=== PATIENT | male | born 1995 | race Caucasian/White ===

== ENCOUNTER 2016-08-15 04:42 | Emergency (ER) | payer OTHER ==
[~2016-08-15] VITALS: Ht 177.8 cm; Wt 72.7 kg
[2016-08-15 04:48] VITALS: BP 129/86; PULSE 98; RESP 18; O2SAT 97
[2016-08-15 06:38] LABS: BASOPHILS % (AUTO) 0.3 % (0-3); EOSINOPHILS % (AUTO) 2.8 % (0-5); MONOCYTES % (AUTO) 5.3 % (4-12); Mean Corpuscular Hemoglobin 31.2 pg (27.0-35.0); Mean Corpuscular Volume 86.4 fL (81-100); NEUTROPHILS % (AUTO) 78.2 % (40-74); Platelet Count 287 bil/L (150-400)
[2016-08-15 06:55] LABS: Magnesium 1.7 mg/dL (1.6-2.6)
--- NOTE | 2016-08-15 07:03 | ED.REPORT ---
HPI-General Illness Date of Service Aug 15, 2016 ED Provider: Herson Kitchen MD Pt is a 21 year old male with a hx of IV heroin use presenting to the ED requesting to be put on Suboxone. Pt complains of leg cramps, agitation, problems sleeping, vomiting, nausea, diaphoresis, and chills. He reports that he last injected heroin yesterday morning. Denies other symptoms at this time. Nursing Notes Stated Complaint: SUBSTANCE ABUSE Chief Complaint: Substance Abuse Nursing Notes Reviewed: Yes ([facility], [employer] not reconciled) Allergies: Coded Allergies: No Known Allergies (Unverified , 08/15/16) General Time Seen by MD: 06:06 Chief Complaint Other (Substance abuse) Hx Obtained From: Patient Arrived By: Walk-in Sudden in Onset?: No Onset Occurred: Just prior to arrival Context of Onset: Other (Heroin use) Symptom Duration: Since onset Location: : Leg left: Leg right Quality: Cramping Severity: Current: Moderate Severity: Maximum: Moderate Recent Healthcare: No recent doctor visit, No recent hospitalization Similar Sx Previous: Yes Past Medical History Past Medical History Herpes - on Valtrex Past Surgical History denies Smoking History Current Every Day Smoker (Smokes Heroin) Social History Drug Use: IV drugs (Heroin) Ambulatory Status Independent Review of Systems Full Review of Systems Constitutional: Reports: Chills, Denies: Weakness - generalized Respiratory: Denies: Wheezing GI: Reports: Nausea, Vomiting Skin: Reports Diaphoresis Psychiatric: Reports: Agitation, Insomnia Complete sys rev & neg: except as marked. Physical Exam Vital Signs Vital Signs Date Time Temp Pulse Resp B/P Pulse Ox O2 Delivery O2 Flow Rate FiO2 08/15/16 04:48 37.0 98 18 129/86 97 Room Air Initial VS: Reviewed, Vital signs normal Head / Eyes: Atraumatic, Normocephalic, PERRL ENT: Mucous membranes moist, Conjunctiva normal, No scleral icterus Neck: Supple, Non-tender, Full range of motion Respiratory: Breath sounds normal, Clear to auscultation, No respiratory distress Cardiovascular: Regular rate & rhythm, Heart sounds normal, Intact distal pulses Abdomen / GI: Soft, Non-tender, No guarding, No rebound, No distention Extremities: Vascular intact, Neuro intact, No swelling, No tenderness Skin: Warm, Dry, No cyanosis Neurologic: Alert, Oriented, Nonfocal Psychiatric: Mood/affect normal, Behavior normal, Normal thought content General/Constitutional: Awake, Alert Restless. Appears in severe withdrawal. Interpretation & Diagnostics Lab Results Interpretation Result Diagram: 08/15/16 0625 08/15/16 0625 Test 08/15/16 05:03 08/15/16 06:25 Hold Urine Received (Received) White Blood Count 11.3th/mm3 (3.8-10.1) Red Blood Count 5.74mil/mm3 (4.40-5.80) Hemoglobin 17.9g/dL (13.8-17.2) Hematocrit 49.6% (41.0-50.0) Mean Corpuscular Volume 86.4fL (81-100) Mean Corpuscular Hemoglobin 31.2pg (27.0-35.0) Mean Corpuscular Hemoglobin Concent 36.1% (32.0-37.0) Red Cell Distribution Width 12.4% (12.3-15.4) Platelet Count 287bil/L (150-400) Neutrophils (%) (Auto) 78.2% (40-74) Lymphocytes (%) (Auto) 13.0% (14-46) Monocytes (%) (Auto) 5.3% (4-12) Eosinophils (%) (Auto) 2.8% (0-5) Basophils (%) (Auto) 0.3% (0-3) Sodium Level 138mEq/L (134-144) Potassium Level 4.6mEq/L (3.5-5.2) Chloride Level 97mEq/L (97-108) Carbon Dioxide Level 23mmol/L (18-29) Blood Urea Nitrogen 11mg/dL (6-20) Creatinine 1.08mg/dL (0.76-1.27) Estimat Glomerular Filtration Rate 90mL/min (>59) Glucose Level 81mg/dL (60-99) Calcium Level 10.2mg/dL (8.5-10.1) Magnesium Level 1.7mg/dL (1.6-2.6) Total Bilirubin 0.6mg/dL (0.0-1.2) Aspartate Amino Transf (AST/SGOT) 30U/L (0-50) Alanine Aminotransferase (ALT/SGPT) 18U/L (0-44) Alkaline Phosphatase 66U/L (25-150) Total Protein 8.1g/dL (6.4-8.4) Albumin 4.6g/dL (3.4-5.0) Lipase 29U/L (13-60) Hold Borrego Top Tube Received (Received) Lab Results Interpretation: CBC mild leukocytosis, nonspecific-patient has no markers are findings of infection clinically. CMP normal Tox screen positive opiates, positive amphetamine Urine dip positive ketones Re-Eval/Medical Decision Med Decision/Clinical Course This is a 21-year-old male presents with a friend both requesting Suboxone due to severe opiate withdrawal. Patient reports using heroin last yesterday, now is having severe body aches, anxiety, restlessness, nausea, and abdominal cramps. He has had no major medical issues. He is not febrile. He is not toxic, but he does appear in significant withdrawal. He received a single dose of Suboxone given adequate withdrawal, is given referral to [facility]. He is discharged in stable condition. Source of Hx: Old records (none in EMR) Time of Eval: 07:20 Patient Status: Condition improved Re-Evaluation/Progress Note: Discussed plan for discharge. Pt understands and agrees. Differential Diagnosis: Positive: Drug dependence, Negative: Acute coronary syndrome, Allergies, Pharyngitis, acute, Pneumonia, Urinary tract infection Counseled Regarding: Diagnosis, Lab results, Need for follow-up, When/why to return to ED Discharge & Departure Primary Impression: Opioid dependence with withdrawal Additional Impression: Polysubstance abuse Disposition: Home Discharge Condition All VS Reviewed: Yes Condition: Improved Additional Instructions: 1. We have been able to give you a single dose of Suboxone from the emergency department to help with the opiate withdrawal. (We can only provide a single dose from the ED) 2. Call for an appointment with [facility] to discuss Suboxone maintenance therapy. 3. If you need a primary care physician follow-up with the [facility] residency clinic. Referrals: [facility] (PCP) [facility] [place] Attestation Portions of this note were transcribed by Kimberley Sandoval. I, Dr. Kitchen personally performed the history, physical exam and medical decision-making; I reviewed and confirmed the accuracy of the information in the transcribed note. Signed by: Hieu Simmons, 08/15/2016 at 0739. copies to: [facility] Herson Kitchen MD 9, 2017 07:02 KIMBERLEY SANDOVAL Aug 15, 2016 07:19
[2016-08-15] MEDS ORDERED: Buprenorphine 2 mg SL Tablet SL ONE (07:15)
== END 2016-08-15 07:35 | disposition home or self-care (01) ==
LOC: SED 04:42
DX: F11.23 Opioid dependence with withdrawal (principal); F19.10 Other psychoactive substance abuse, uncomplicated; F17.200 Nicotine dependence, unspecified, uncomplicated

== ENCOUNTER 2016-10-11 04:46 | Emergency (ER) | payer OTHER ==
[~2016-10-11] VITALS: Ht 180.3 cm; Wt 77.3 kg
[2016-10-11 04:50] VITALS: BP 128/76; PULSE 90; RESP 16; O2SAT 98
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
[2016-10-11] MEDS ORDERED: _Amoxicillin 500 mg Capsule PO SCH (08:30)
== END 2016-10-11 05:21 ==
LOC: SED 04:46
DX: H66.002 Acute suppurative otitis media without spontaneous rupture of ear drum, left ear (principal); V41.5XXA Car driver injured in collision with pedal cycle in traffic accident, initial encounter; Y93.89 Activity, other specified; Y92.410 Unspecified street and highway as the place of occurrence of the external cause; Y99.8 Other external cause status; F17.200 Nicotine dependence, unspecified, uncomplicated